=== PATIENT | female | born 1970 | race Caucasian/White ===

== ENCOUNTER → 2018-06-30 | Outpatient (CLI) | payer MEDICAID ==
[~2018-06-30] MED LIST: AC500T; ALBU17AE23 IH; AZIT500T2; BUDE10.2; CYCL10TA9 PO; EST30C; FLUT16SP22; GABA600T2 PO; GFN600TCR; HYDR-2889 PO; HYDR118S10 PO; LORA10TA7; NAPR-915; NITR-65 PO; ONDAN4ODT PO; POTA10CA43; PRD20T; TIOT18CA2
--- NOTE | 2018-06-30 11:55 | Diagnostic Imaging Report ---
PROCEDURE: MRI lumbar spine. TECHNIQUE: Multiplanar, multisequence MRI of the lumbar spine was performed without contrast. INDICATION: Low back pain, bilateral leg pain. FINDINGS: There are no prior MRI studies available for comparison. The plain film examination of the lumbar spine performed on 09/22/2013 failed to show any sign of an acute bony abnormality. On the T2 sagittal images of this exam, the vertebral body heights and alignment are within normal limits and similar to the prior study. The intervertebral disc spaces are fairly well maintained, although there is desiccation of the discs at every level. Furthermore at the L4-L5 level, there is a disc bulge centrally. The disc indents the ventral aspect of the thecal sac and narrows the AP diameter to 9.1 mm. There is also mild narrowing of the neuroforamen bilaterally at this level. At the L5-S1 level, there is also a disc bulge eccentric to the right. The disc effaces the right ventral aspect of the thecal sac and is in close proximity to the origin of the exiting right nerve root. The AP diameter of the thecal sac at this level measures 12.1 mm. There is only mild narrowing of the neuroforamen bilaterally at this level. There is no evidence for spinal stenosis or nerve root encroachment at L1-L2, L2-L3, and L3-L4. There is no abnormal signal arising from the cord or other vertebral bodies to indicate an acute abnormality. There is no sign of solid paraspinal mass. There is a 2.3 cm cyst along the inferior pole of the left kidney. IMPRESSION: 1. There is moderate central stenosis at L4-L5 due to a disc bulge centrally. There is also mild narrowing of the neuroforamen bilaterally at this level. 2. There is no evidence for central stenosis at L5-S1 but there is a disc bulge eccentric to the right which is in close proximity to the origin of the exiting right nerve root. 3. The remainder of the lumbar spine is unremarkable for spinal stenosis or nerve root encroachment. 4. There is no sign of an acute bony abnormality or of a cord lesion. Dictated by: Dictated on workstation # [id number]
== END ==
LOC: RAD 08:32
PROVIDERS: ATTEND Nurse Practitioner Family
DX: M51.36 Other intervertebral disc degeneration, lumbar region (principal); M48.061 Spinal stenosis, lumbar region without neurogenic claudication; M51.26 Other intervertebral disc displacement, lumbar region; M99.73 Connective tissue and disc stenosis of intervertebral foramina of lumbar region
CPT/HCPCS: 72148

== ENCOUNTER 2021-02-15 09:51 | Emergency (ER) | payer MEDICAID ==
[~2021-02-15] VITALS: Ht 150 cm; Wt 67.0 kg
[2021-02-15] MEDS ORDERED: CLIN300C12 PO (10:56)
--- NOTE | 2021-02-15 10:56 | ED Integumentary General ---
General Chief Complaint: General Problems/Pain Stated Complaint: CHIN SWOLLEN Nursing Triage Note: AMB TO ROOM WITH SWELLING AND REDNESS TO CHIN X 1 WEEK WAS TREATED X2 WEEKS AGO WITH AMOXIL FOR STREP. SAT STARTED ON KEFLEX FOR SWELLING IN CHIN. WENT BACK ON SAT BECAUSE IT WAS NOT ANY BETTER. GIVEN ROCEPHIN. AND TOLD TO STOP KEFLEX CON'T TO HAVE PAIN AND SWLLING. Source: patient Exam Limitations: no limitations History of Present Illness Date Seen by Provider: Feb 15, 2021 Time Seen by Provider: 10:40 Initial Comments Patient is a 50-year-old female who presents to the emergency department with a chief complaint of pain, swelling, redness to her anterior chin and the right lower side of her mouth. Patient states onset of symptoms about 7 days ago. She was on an antibiotic that she states started with a C, (this might be cephalexin). Patient states that she started getting a little bit worse and presented to the [facility] walk[facility]in [facility] on Friday. She was told to stop taking the cephalexin and was given a shot of Rocephin but not placed on any other antibiotics. Patient states she is continued to have worsening swelling pain and redness. She complains of a little bit of nausea secondary to the pain. No other complaints of systemic illness. She is taking hydrocodone tens for the pain as she has these prescribed for her back and also some ibuprofen which she states helps a little bit her last medications were about 5 hours ago. She denies any specific dental pain. She states that the swelling started at the center of the lower portion of her chin. All other review of systems reviewed and negative except as stated above. Timing/Duration: week, getting worse Severity: moderate Location: face Possible Cause: no cause identified Associated Symptoms: denies symptoms Allergies and Home Medications Allergies Coded Allergies: codeine (Unverified Allergy, Mild, 06/02/09) morphine (Unverified Allergy, Mild, 06/02/09) ketorolac tromethamine (Unverified Adverse Reaction, Intermediate, VOMITING, 02/07/12) tramadol (Unverified Adverse Reaction, Intermediate, MIGRAINE, 02/07/12) Home Medications Albuterol 17 Gm Aerosol, 2 PUFF IH PRN, (Reported) Cyclobenzaprine Hcl 10 Mg Tablet, 1 TAB PO HS, (Reported) Hydrocodone Bit/Acetaminophen 1 Each Tablet, 1 TAB PO Q6HR, (Reported) Patient Home Medication List Home Medication List Reviewed: Yes Review of Systems Review of Systems Constitutional: see HPI EENTM: mouth swelling (Chin swelling and erythema) Respiratory: no symptoms reported Cardiovascular: no symptoms reported Gastrointestinal: nausea Genitourinary: no symptoms reported Musculoskeletal: no symptoms reported Skin: other (Redness and swelling to chin) Psychiatric/Neurological: Anxiety All Other Systems Reviewed Negative Unless Noted: Yes Past Glrnskg-Plztyq-Jpcbmo Hx Patient Social History Tobacco Use?: Yes Tobacco type used: Cigarettes Smoking Status: Current Everyday Smoker Substance use?: No Immunizations Up To Date Influenza Vaccine Up-to-Date: No; Not Current First/Initial COVID19 Vaccinat: fe or marcch Second COVID19 Vaccination Kimani: ? 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 Genitourinary: No Gastrointestinal: Yes Gastroesophageal Reflux Musculoskeletal: Yes Degenerate Disk Disease, Arthritis, Chronic Back Pain Endocrine: No HEENT: No Cancer: No Psychosocial: No Integumentary: No Blood Disorders: No Family Medical History No Pertinent Family Hx Physical Exam Vital Signs Vital Signs - First Documented 02/15/21 10:01 Temp 36.8 Pulse 70 Resp 18 B/P (MAP) 109/60 (76) Pulse Ox 99 O2 Delivery OxyMask Capillary Refill : Less Than 3 Seconds General Appearance: WD/WN, mild distress (Tearful) HEENT: other (Patient has a fairly significant amount of swelling to the chin area of her face with swelling that extends over to the corner of her mouth on the right. No palpable fluctuance. The erythema extends from the chin and lower lip area down to the neck. Again no fluctuance is palpated. No open wounds are identified. Extensive examination of the inner surface of the lip and the lower teeth show no percussive tenderness to the teeth. She has an incisor on the right lower jaw that is necrotic to the gumline. No tenderness to palpation of the base of this tooth. No fluctuance in the gingiva. No palpable lymphadenopathy under the chin. The entire chin and just below the chin are warm to the touch as well as erythematous.) Neck: full range of motion Cardiovascular: regular rate, rhythm Respiratory: lungs clear, normal breath sounds, no respiratory distress, no accessory muscle use Extremities: non-tender, normal inspection Neurologic/Psychiatric: alert, normal mood/affect, oriented x 3 Skin: normal color, warm/dry Progress/Results/Core Measures Results/Orders Vital Signs/I&O 02/15/21 10:01 Temp 36.8 Pulse 70 Resp 18 B/P (MAP) 109/60 (76) Pulse Ox 99 O2 Delivery OxyMask Blood Pressure Mean: 76 Departure Impression Primary Impression: Cellulitis of chin Disposition: HOME, SELF-CARE Condition: Stable Departure-Patient Inst. Decision time for Depature: 10:54 Referrals: [facility] (PCP) Primary Care Physician STEPH ERAZO (Family) Primary Care Physician Patient Instructions: Cellulitis (Skin Infection), Adult (DC) Add. Discharge Instructions: Drink plenty of fluids to stay well-hydrated. Continue your pain medications and ibuprofen as needed for pain. Continue to try and put cool packs to the area of swelling as this may help decrease the amount of swelling you have in your face. Take the antibiotics as directed for the next 7 days. Follow-up for reevaluation/recheck of your cellulitis in 2 to 3 days. Come back to the emergency room for any worsening swelling, swelling in your neck, fevers or any other emergent concerning symptoms. Scripts Clindamycin HCl (Clindamycin HCl) 300 Mg Capsule 300 MG PO QID for 7 Days, #28 CAP Prov: FLY TSANG MD 02/15/21 Work/School Note: Work Release Form Date Seen in the Emergency Department: Feb 15, 2021 Return to Work: Feb 17, 2021 FLY TSANG MD Feb 15, 2021 10:55
[2021-02-15 11:40] VITALS: BP 109/60
== END 2021-02-15 12:02 | disposition home or self-care (01) ==
LOC: EDUNIT# 09:51 → ER 09:53
DX: L03.211 Cellulitis of face (principal); J44.9 Chronic obstructive pulmonary disease, unspecified; G89.29 Other chronic pain; M54.9 Dorsalgia, unspecified; F17.210 Nicotine dependence, cigarettes, uncomplicated; Z88.5 Allergy status to narcotic agent; Z79.891 Long term (current) use of opiate analgesic; Z79.899 Other long term (current) drug therapy
CPT/HCPCS: 99281

== ENCOUNTER 2021-04-16 12:45 | Emergency (ER) | payer MEDICAID ==
[~2021-04-16] VITALS: Ht 170 cm; Wt 72.0 kg
[~2021-04-16 12:45] MED LIST changes: +CLIN300C12 PO
--- NOTE | 2021-04-16 13:23 | ED Lower Extremity ---
General Chief Complaint: Lower Extremity Stated Complaint: FALL - RIGHT ANKLE PAIN Nursing Triage Note: ARRIVED VIA AMB TO ROOM 06 WITH COMPLAINTS OF RIGHT ANKLE PAIN AFTER FALLING IN A HOLE HER DOG DUG. PT TOOK A HYDROCODONE 10 ET STATES IT ONLY TOOK THE EDGE OFF. Source: patient Exam Limitations: no limitations History of Present Illness Date Seen by Provider: Apr 16, 2021 Time Seen by Provider: 12:54 Initial Comments This is a well-appearing 50-year-old female who presented to the ER with complaints of right ankle pain after falling in a hole her dog a dog in the yard. Incident occurred around 0800 this am. States that she takes hydrocodone 10 mg tablets for arthritis and she took 1 of those this morning. States this took edge off pain. She went to work today and pain was worse with ambulation. Decided to have her ankle evaluated this afternoon. Has minimal swelling. States she is in no pain at rest. No other injuries reported. Allergies and Home Medications Allergies Coded Allergies: codeine (Unverified Allergy, Mild, 06/02/09) morphine (Unverified Allergy, Mild, 06/02/09) ketorolac tromethamine (Unverified Adverse Reaction, Intermediate, VOMITING, 02/07/12) tramadol (Unverified Adverse Reaction, Intermediate, MIGRAINE, 02/07/12) Patient Home Medication List Home Medication List Reviewed: Yes Albuterol (Proventil Inh) 17 Gm Aerosol, 2 PUFF IH PRN, (Reported) Entered as Reported by: PRECIOUS MOCK on 02/07/122112 Budesonide/Formoterol Fumarate (Symbicort 160-4.5 Mcg Inhaler) 10.2 Gm Hfa.aer.ad, (Reported) Entered as Reported by: STERLING MCCLELLAN on 06/15/171948 Clindamycin HCl (Clindamycin HCl) 300 Mg Capsule, 300 MG PO QID Prescribed by: FLY TSANG on 02/15/21 1056 Cyclobenzaprine Hcl (Cyclobenzaprine Hcl) 10 Mg Tablet, 1 TAB PO HS, (Reported) Entered as Reported by: PRECIOUS MOCK on 02/07/122112 Estrogens Conjugated (Premarin) 30 Gm Cr, (Reported) Entered as Reported by: STERLING MCCLELLAN on 06/15/171948 Fluticasone Propionate (Fluticasone Propionate) 16 Gm [place].susp, (Reported) Entered as Reported by: STERLING MCCLELLAN on 06/15/171948 Hydrocodone Bit/Acetaminophen (Hydrocodon-Acetaminoph 7.5-500) 1 Each Tablet, 1 TAB PO Q6HR, (Reported) Entered as Reported by: PRECIOUS MOCK on 02/07/122112 Loratadine (Loratadine) 10 Mg Tablet, (Reported) Entered as Reported by: STERLING MCCLELLAN on 06/15/171948 Naproxen (Naproxen) 500 Mg Tablet, (Reported) Entered as Reported by: STERLING MCCLELLAN on 06/15/171948 Potassium Chloride (Potassium Chloride) 10 Meq Capsule.er, (Reported) Entered as Reported by: STERLING MCCLELLAN on 06/15/171948 Prednisone (Prednisone) 20 Mg Tab, (Reported) Entered as Reported by: STERLING MCCLELLAN on 06/15/171948 Tiotropium [place] (Spiriva) 1 Inh Aerp, (Reported) Entered as Reported by: STERLING MCCLELLAN on 06/15/171948 Review of Systems Constitutional: no symptoms reported EENTM: no symptoms reported Respiratory: no symptoms reported Cardiovascular: no symptoms reported Gastrointestinal: no symptoms reported Genitourinary: no symptoms reported Musculoskeletal: see HPI Skin: no symptoms reported Psychiatric/Neurological: No Symptoms Reported Past Ryeexfh-Eehcqs-Klnkel Hx Patient Social History Smoking Status: Current Everyday Smoker Substance use?: No Alcohol Use?: No Pt feels they are or have been: No Seasonal Allergies Seasonal Allergies: Yes Past Medical History Surgeries: Yes Gallbladder, Hysterectomy, Orthopedic Respiratory: Yes (asthma) Asthma, COPD Cardiac: No 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 oz. 76.875706rz; 24.00 BMI Method:Stated General Appearance: WD/WN, no apparent distress HEENT: normal ENT inspection, pharynx normal Neck: full range of motion, normal inspection Cardiovascular: regular rate, rhythm, no murmur Respiratory: lungs clear, normal breath sounds, no respiratory distress Gastrointestinal: normal bowel sounds, non tender, soft Back: normal inspection Hips: bilateral hip non-tender, bilateral hip normal inspection, bilateral hip normal range of motion, bilateral hip no evidence of injury Legs: bilateral leg non-tender, bilateral leg normal inspection, bilateral leg normal range of motion, bilateral leg no evidence of injury Knees: bilateral knee non-tender, bilateral knee normal inspection, bilateral knee normal range of motion, bilateral knee no evidence of injury Ankles: left ankle non-tender, left ankle normal inspection, left ankle normal range of motion; right ankle bone tenderness (lateral ankle ), right ankle soft tissue tenderness, right ankle swelling Feet: right foot bone tenderness (dorasal mid foot ) Neurologic/Tendon: normal sensation, normal motor functions, normal tendon functions Neurologic/Psychiatric: no motor/sensory deficits, alert, normal mood/affect, oriented x 3 Skin: normal color, warm/dry Progress/Results/Core Measures Results/Orders My Orders Orders - PORTILLO ROSEN APRN Ankle, Right, 3 Views (04/16/21 12:54) Vital Signs/I&O 04/16/21 04/16/21 13:00 13:45 Temp 36.3 36.3 Pulse 77 77 Resp 16 16 B/P (MAP) 117/58 (77) 117/58 Pulse Ox 93 93 O2 Delivery Room Air Room Air Blood Pressure Mean: 77 Progress Progress Note : Progress Note Placed in ankle boot. Will follow up with ortho. Diagnostic Imaging Diagonstic Imaging: Xray Plain Films/CT/US/NM/MRI: ankle Comments [place] NAME: FERNANDO FLETCHER Gomez MED REC#: [id number] PT STATUS: REG ER : 1970 PHYSICIAN: PORTILLO ROSEN APRN ADMIT DATE: 04/16/21/ER Signed Date of Exam:04/16/21 ANKLE, RIGHT, 3 VIEWS CLINICAL HISTORY: Right ankle pain. Fall. COMPARISON: None. TECHNIQUE: 3 views of the right ankle. FINDINGS: There are small focal ossified fragments adjacent to the lateral aspect of the cuboid with associated soft tissue edema present. The ankle mortise is well aligned. No fracture seen involving the distal right fibula and tibia. No suspicious focal osseous lesions are seen. IMPRESSION: 1. Possible avulsion fracture versus accessory ossicles lateral to the cuboid with soft tissue edema present. Recommend correlation with point tenderness. 2. No acute fracture or dislocation in the right ankle joint. The right ankle appears well aligned. Dictated by: Dictated on workstation # [id number] Dict: 04/16/21 1329 Trans: 04/16/21 1336 [id number] Interpreted by: ANNA WILKINS DO Electronically signed by: ANNA WILKINS DO 04/16/21 1336 Reviewed: Reviewed by Me Departure Impression Primary Impression: Floating ossicle of ankle Disposition: 01 HOME, SELF-CARE Condition: Improved Departure-Patient Inst. Referrals: [facility] (PCP) Primary Care Physician STEPH ERAZO (Family) Primary Care Physician ZAY NICK MD Patient Instructions: Ankle Fracture (DC) Add. Discharge Instructions: Plan: 1. Wear walking boot when ambulating. Weight bearing as tolerated. 2. Ice, keep elevated, tylenol or ibuprofen as needed for pain. 3. Follow up with ortho provider. See above. Call for appointment. 4. Return for any new, concerning, or worsening symptoms. All discharge instructions reviewed with patient and/or family. Voiced understanding. PORTILLO ROSEN BARNWORKER GROOM Apr 16, 2021 13:23
--- NOTE | 2021-04-16 13:35 | Diagnostic Imaging Report ---
CLINICAL HISTORY: Right ankle pain. Fall. COMPARISON: None. TECHNIQUE: 3 views of the right ankle. FINDINGS: There are small focal ossified fragments adjacent to the lateral aspect of the cuboid with associated soft tissue edema present. The ankle mortise is well aligned. No fracture seen involving the distal right fibula and tibia. No suspicious focal osseous lesions are seen. IMPRESSION: 1. Possible avulsion fracture versus accessory ossicles lateral to the cuboid with soft tissue edema present. Recommend correlation with point tenderness. 2. No acute fracture or dislocation in the right ankle joint. The right ankle appears well aligned. Dictated by: Dictated on workstation # [id number]
[2021-04-16 13:45] VITALS: BP 117/58
== END 2021-04-16 13:45 | disposition home or self-care (01) ==
LOC: EDUNIT# 12:45 → ER 12:47
DX: M89.8X7 Other specified disorders of bone, ankle and foot (principal); J44.9 Chronic obstructive pulmonary disease, unspecified; G89.29 Other chronic pain; M54.9 Dorsalgia, unspecified; F17.290 Nicotine dependence, other tobacco product, uncomplicated; Z79.891 Long term (current) use of opiate analgesic; Z79.52 Long term (current) use of systemic steroids; Z79.899 Other long term (current) drug therapy
CPT/HCPCS: 73610; 99282; L2114

== ENCOUNTER 2022-01-13 18:13 | Emergency (ER) | payer MEDICAID ==
[~2022-01-13 18:13] MED LIST changes: +CLIN-144 PO; -CLIN300C12 PO
== END 2022-01-13 19:15 | disposition left against medical advice (07) ==
LOC: EDUNIT# 18:13 → ER 18:14
DX: R50.9 Fever, unspecified (principal); R06.02 Shortness of breath; R05.9 Cough, unspecified; R52 Pain, unspecified

== ENCOUNTER 2022-05-19 10:14 | Emergency (ER) | payer MEDICAID ==
[~2022-05-19] VITALS: Ht 170 cm; Wt 64.0 kg
[2022-05-19 10:25] VITALS: BP 121/60
[2022-05-19] MEDS ORDERED: CYCL10TA25 PO (10:48)
--- NOTE | 2022-05-19 10:49 | ED Back Pain ---
General Chief Complaint: Back Problems Stated Complaint: BACK PAIN Nursing Triage Note: ARRIVED VIA AMB TO ROOM 06 WITH COMPLAINTS OF LEFT SIDED BACK PAIN THAT STARTED APPX 2 DAYS AGO WHEN SHE LIFTED A KID THAT WEIGHED 20#. Source of Information: Patient Exam Limitations: No Limitations History of Present Illness Date Seen by Provider: May 19, 2022 Time Seen by Provider: 10:38 Initial Comments 51-year-old female presents for right low back pain. Symptoms present for couple days after a coughing spell on Friday. She has had pain worsening since that time. Its dull throbbing worse with movement, twisting ambulation. It radiates down her right leg. She has had a bulging disc in the past and fears it may be a recurrence of this. She saw her primary care doctor who started on steroid medications. Also taking hydrocodone 10 mg tablets at home which she has for arthritis. No loss of bowel or bladder control. No lower extremity weakness. Allergies and Home Medications Allergies Coded Allergies: codeine (Unverified Allergy, Mild, 06/02/09) morphine (Unverified Allergy, Mild, 06/02/09) ketorolac tromethamine (Unverified Adverse Reaction, Intermediate, VOMITING, 02/07/12) tramadol (Unverified Adverse Reaction, Intermediate, MIGRAINE, 02/07/12) Patient Home Medication List Home Medication List Reviewed: Yes Albuterol (Proventil Inh) 17 Gm Aerosol, 2 PUFF IH PRN, (Reported) Entered as Reported by: PRECIOUS MOCK on 02/07/122112 Budesonide/Formoterol Fumarate (Symbicort 160-4.5 Mcg Inhaler) 10.2 Gm Hfa.aer.ad, (Reported) Entered as Reported by: STERLING MCCLELLAN on 06/15/171948 Clindamycin HCl (Clindamycin HCl) 300 Mg Capsule, 300 MG PO QID Prescribed by: FLY TSANG on 02/15/21 1056 Cyclobenzaprine HCl (Cyclobenzaprine HCl) 10 Mg Tablet, 10 MG PO TID Prescribed by: NOE SCHWAB MD on 05/19/22 1048 Cyclobenzaprine Hcl (Cyclobenzaprine Hcl) 10 Mg Tablet, 1 TAB PO HS, (Reported) Entered as Reported by: PRECIOUS MOCK on 02/07/122112 Estrogens Conjugated (Premarin) 30 Gm Cr, (Reported) Entered as Reported by: STERLING MCCLELLAN on 06/15/171948 Fluticasone Propionate (Fluticasone Propionate) 16 Gm [place].susp, (Reported) Entered as Reported by: STERLING MCCLELLAN on 06/15/171948 Hydrocodone Bit/Acetaminophen (Hydrocodon-Acetaminoph 7.5-500) 1 Each Tablet, 1 TAB PO Q6HR, (Reported) Entered as Reported by: PRECIOUS MOCK on 02/07/122112 Loratadine (Loratadine) 10 Mg Tablet, (Reported) Entered as Reported by: STERLING MCCLELLAN on 06/15/171948 Naproxen (Naproxen) 500 Mg Tablet, (Reported) Entered as Reported by: STERLING MCCLELLAN on 06/15/171948 Potassium Chloride (Potassium Chloride) 10 Meq Capsule.er, (Reported) Entered as Reported by: STERLING MCCLELLAN on 06/15/171948 Prednisone (Prednisone) 20 Mg Tab, (Reported) Entered as Reported by: STERLING MCCLELLAN on 06/15/171948 Tiotropium [place] (Spiriva) 1 Inh Aerp, (Reported) Entered as Reported by: STERLING MCCLELLAN on 06/15/171948 Review of Systems Constitutional: no symptoms reported EENTM: no symptoms reported Respiratory: no symptoms reported Cardiovascular: no symptoms reported Gastrointestinal: no symptoms reported Genitourinary: no symptoms reported Musculoskeletal: back pain Skin: no symptoms reported Psychiatric/Neurological: No Symptoms Reported Past Slurrdu-Umyrog-Pivgcd Hx Patient Social History Tobacco Use?: Yes Smoking Status: Current Everyday Smoker Substance use?: No Alcohol Use?: No Immunizations Up To Date COVID19 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 Seasonal Allergies Seasonal Allergies: Yes Past Medical History Surgeries: Yes Gallbladder, Hysterectomy, Orthopedic Respiratory: Yes (asthma) Asthma, COPD Cardiac: No Neurological: 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 oz. 76.382269ji; 22.00 BMI Method:Stated General Appearance: No Apparent Distress, WD/WN HEENT: Normal ENT Inspection, Pharynx Normal Neck: Normal Inspection, Non Tender, Supple Cardiovascular: Regular Rate, Rhythm, No Edema, No Gallop, No JVD, No Murmur, Normal Peripheral Pulses Respiratory: Chest Non Tender, Lungs Clear, Normal Breath Sounds, No Accessory Muscle Use, No Respiratory Distress Gastrointestinal: Normal Bowel Sounds, No Organomegaly, No Pulsatile Mass, Non Tender, Soft Back: Normal Inspection, No CVA Tenderness, Vertebral Tenderness (Mid lumbar spine. 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 Conservative management, she is already on fairly high doses of pain medication at home. We will add muscle relaxers. She will continue her home steroids. Has reliable follow-up with her primary doctor who may be in the process of setting up an MRI if she does not improve. Discharged in stable condition after questions were sought and answered. Impression Primary Impression: Back pain Qualified Codes: M54.41 - Lumbago with sciatica, right side Disposition: 01 HOME, SELF-CARE Condition: Stable Departure-Patient Inst. Referrals: [facility] (PCP/Family) Primary Care Physician Patient Instructions: Low Back Pain (DC) Add. Discharge Instructions: Continue home pain medications as previously prescribed. Add Flexeril, muscle relaxer which should help as well. Ambulate as tolerated. The Flexeril may make you drowsy so do not drive or make important decisions while you are taking it. If you continue to have symptoms follow-up with your primary care doctor for further evaluation and treatment recommendations. All discharge instructions reviewed with patient and/or family. Voiced understanding. Scripts Cyclobenzaprine HCl (Cyclobenzaprine HCl) 10 Mg Tablet 10 MG PO TID for Muscle Spasms for 5 Days, #15 TAB Prov: NOE SCHWAB DO 05/19/22 NOE SCHWAB DO May 19, 2022 10:49
== END 2022-05-19 10:56 | disposition home or self-care (01) ==
LOC: EDUNIT# 10:14 → ER 10:15
DX: M54.50 Low back pain, unspecified (principal); F17.200 Nicotine dependence, unspecified, uncomplicated; Z88.5 Allergy status to narcotic agent; Z87.39 Personal history of other diseases of the musculoskeletal system and connective tissue
CPT/HCPCS: 99281

== ENCOUNTER → 2022-05-21 | Outpatient (CLI) | payer MEDICAID ==
[~2022-05-21] MED LIST changes: +CYCL10TA25 PO
--- NOTE | 2022-05-21 14:41 | Diagnostic Imaging Report ---
PROCEDURE: MRI lumbar spine. TECHNIQUE: Multiplanar, multisequence MRI of the lumbar spine was performed without contrast. INDICATION: Right sciatic nerve pain. COMPARISON: MRI of the lumbar spine of 06/30/2018. FINDINGS: Normal alignment of the lumbar spine. There is no fracture or concerning marrow replacing process. No sacral insufficiency fracture. There are no Modic endplate changes within the lumbar spine. Distal thoracic cord is normal in appearance. No clumping of the intrathecal nerve roots. Exophytic cyst off the lower pole of the left kidney is not substantially changed. Normal caliber abdominal aorta. L1-L2: There is a new right paracentral disc extrusion that moderately narrows the lateral recess but does not compress the exiting or transversing nerve roots. L2-L3: No spinal canal or neuroforaminal stenosis. L3-L4: No spinal canal or neuroforaminal stenosis. L4-L5: There is disc bulge with posterior annular tear. Mild ligamentum flavum hypertrophy is similar. There remains mild to moderate spinal canal stenosis but no impingement of the intrathecal nerve roots. Additionally, the mild to moderate neuroforaminal stenosis is similar but there is no impingement of the exiting L4 nerve roots. L5-S1: Right paracentral disc protrusion is stable in configuration. This is again noted to contact the right S1 nerve root within the lateral recess but does not compress it. There is no spinal canal stenosis. No neuroforaminal narrowing. IMPRESSION: 1. New since prior examination in 2018, there is a right paracentral disc extrusion at L5-S1 that mildly narrows the right lateral recess but does not appear to compress the intrathecal nerve roots. 2. The right paracentral disc protrusion at L5-S1 is in stable configuration contacting the right S1 nerve root. Dictated by: Dictated on workstation # [id number]
== END ==
LOC: RAD 10:15
PROVIDERS: ATTEND Student in an Organized Health Care Education/Training Program
DX: M51.27 Other intervertebral disc displacement, lumbosacral region (principal)
CPT/HCPCS: 72148